=== PATIENT | female | born 1945 | race Caucasian/White ===

== ENCOUNTER → 2017-03-18 | Outpatient (CLI) | payer MEDICARE, OTHER | LOC: MW.CHORTHO 08:00 | PROVIDERS: ATTEND Physician Assistant | DX: M17.11 Unilateral primary osteoarthritis, right knee (principal) | CPT/HCPCS: 20610; G0463; J1040; J7326 ==

== ENCOUNTER 2019-05-13 20:20 | Emergency (ER) | payer MEDICARE, OTHER ==
[2019-05-13] MEDS ORDERED: Morphine 2 MG/ML Syringe IVPUSH ONE (20:23)
[2019-05-13] MEDS ORDERED: Ondansetron 4 MG/2 ML SDV IVPUSH ONE (20:23)
--- NOTE | 2019-05-13 20:38 | EDM.PDOC ---
ED HPI GENERAL MEDICAL PROBLEM - General Chief Complaint: Trauma Stated Complaint: FELL UP THE STAIRS, LIGHT HEADED Time Seen by Provider: 05/13/19 20:23 Source of Information: Reports: Patient History Limitations: Reports: No Limitations - History of Present Illness INITIAL COMMENTS - FREE TEXT/NARRATIVE: HISTORY AND PHYSICAL: Trauma alert was called upon patient arrival due to age and being on request. Dr Wilson was directly involved in patient care. History of present illness: Patient is a 73-year-old female who presents to the emergency room with complaints of right shoulder pain. She states she was walking up the stairs when her foot got caught while taking a step up and she had fallen onto her right side. She denies hitting her head or having any loss of consciousness. Right arm is guarded in parts her body and does appear like it may be dislocated. She denies any other systemic complaints at this time. Patient denies any fever, chills, headache, change in vision, syncope or near syncope. Denies any chest pain, back pain, shortness of breath or cough. Denies any abdominal pain, nausea, vomiting, diarrhea, constipation or dysuria. Has not noted any blood in urine or stool. Patient has been eating and drinking appropriately. Review of systems: As per history of present illness and below otherwise all systems reviewed and negative. Past medical history: As per history of present illness and as reviewed below otherwise noncontributory. Surgical history: As per history of present illness and as reviewed below otherwise noncontributory. Social history: See social history for further information Family history: As per history of present illness and as reviewed below otherwise noncontributory. Physical exam: General: Well-developed and well-nourished 73-year-old female. Alert and oriented. Nontoxic appearing and in no acute distress. HEENT: Atraumatic, normocephalic, pupils equal and reactive bilaterally, negative for conjunctival pallor or scleral icterus, mucous membranes moist, TMs normal bilaterally, throat clear, neck supple, nontender, trachea midline. No drooling or trismus noted. No meningeal signs. No hot potato voice noted. Lungs: Clear to auscultation, breath sounds equal bilaterally, chest nontender. Heart: S1S2, regular rate and rhythm without overt murmur Abdomen: Soft, nondistended, nontender. Negative for masses or hepatosplenomegaly. Negative for costovertebral tenderness. Pelvis: Stable nontender. Genitourinary/Rectal: Deferred. Skin: Intact, warm, dry. No lesions or rashes noted. Extremities: Limited range of motion of the right shoulder, has a guarded in towards her body. No tenderness of the right elbow, forearm, wrist or hand. Strong radial pulse with good capillary refill. Mild pain with palpation to the right anterior knee. Otherwise moves all other extremities per self without difficulty or deficits, negative for cords or calf pain. Neurovascular unremarkable. C-spine/Back: No pinpoint vertebral tenderness upon palpation. No crepitus, step -offs or obvious deformities. Patient was ambulatory into the emergency room and able to rock on her heels and toes without difficulty or deficits. Denies any numbness, tingling or saddle paresthesia. Denies any urinary or fecal incontinence. Neuro: Awake, alert, oriented. Cranial nerves II through XII unremarkable. Cerebellum unremarkable. Motor and sensory unremarkable throughout. Exam nonfocal. Notes: Dr Wilson evaluated this patient upon arrival. Patient has not had a previous shoulder dislocation. Agreeable to imaging. Head CT is negative. Initial right shoulder x-ray shows a dislocated shoulder. Negative chest x-ray. No acute findings on knee xray. Reduction technique was explained prior, consent obtained from patient and family member at bedside. Traction - counter traction was performed for closed shoulder reduction by Dr Wilson and myself. Patient tolerated well. Post reduction film was obtained. Normal postreduction film. Education on shoulder immobilizer and sling were given to patient and daughter at bedside. Medication and supportive care measures were reviewed and discussed. Patient lives in [place], encouraged to follow-up with orthopedics. Voices understanding and is agreeable to plan of care. Denies any further questions or concerns at this time. Diagnostics: Head CT, Shoulder, CXR Therapeutics: Morphine, Zofran Prescription: Tramadol (#15) Impression: Fall Right shoulder dislocation Right knee injury Plan: 1. Rest and ice the painful areas as able. Continue to use the shoulder immobilizer or sling as we discussed. Please follow-up with the orthopedic PA provider as we discussed. 2. Tylenol and/or ibuprofen for pain management. Tramadol for moderate to severe pain. This medication may cause drowsiness a do not take it will driving her needing to be functioning outside of the house. 3. Return to the ED as needed and as discussed. Definitive disposition and diagnosis as appropriate pending reevaluation and review of above. Onset: Today Duration: Minutes: Right Shoulder Pain Score (Numeric/FACES): 10 - Related Data Allergies Allergy/AdvReac Type Severity Reaction Status Date / Time No Known Allergies Allergy Verified 05/13/19 20:45 Home Meds: Home Meds Apixaban [Eliquis] 0 mg PO DAILY 05/13/19 [History] Losartan [Cozaar] 0 mg PO DAILY 05/13/19 [History] Naltrexone HCl/Bupropion HCl [Contrave ER 8-90 mg Tablet] 0 mg PO DAILY [History] Rosuvastatin [Crestor] 0 mg PO DAILY 05/13/19 [History] Verapamil HCl [Verapamil ER] 0 mg PO DAILY 05/13/19 [History] Review of Systems - Review of Systems Review Of Systems: ROS reveals no pertinent complaints other than HPI. ED EXAM, GENERAL - Physical Exam Exam: See Below (See dictation) Course - Vital Signs Last Recorded V/S: Last Vital Signs Temp 96.5 F 05/13/19 21:00 Pulse 61 05/13/19 21:00 Resp 19 05/13/19 21:00 BP 199/68 H 05/13/19 21:00 Pulse Ox 100 05/13/19 21:00 - Orders/Labs/Meds Orders: Active Orders 24 hr Category Date Time Status Shoulder 1V Rt [CR] Stat Exams 05/13/19 21:02 Taken DME for Discharge [COMM] Stat Oth 05/13/19 20:56 Ordered Meds: Medications Discontinued Medications Generic Name Dose Route Start Last Admin Trade Name Freq PRN Reason Stop Dose Admin Morphine Sulfate 2 mg 05/13/19 20:23 05/13/19 20:59 Morphine IVPUSH 05/13/19 20:24 2 mg ONETIME ONE Administration Ondansetron HCl 4 mg 05/13/19 20:23 05/13/19 20:50 Zofran IVPUSH 05/13/19 20:24 4 mg ONETIME ONE Administration Departure - Departure Time of Disposition: 21:47 Disposition: Home, Self-Care 01 Clinical Impression: Dislocation of right shoulder joint Qualifiers: Encounter type: initial encounter Qualified Code(s): S43.004A - Unspecified dislocation of right shoulder joint, initial encounter Fall Qualifiers: Encounter type: initial encounter Qualified Code(s): W19.XXXA - Unspecified fall, initial encounter Right knee injury Qualifiers: Encounter type: initial encounter Qualified Code(s): S89.91XA - Unspecified injury of right lower leg, initial encounter - Discharge Information Referrals: PCP,Not In Area [Primary Care Provider] - Forms: ED Department Discharge Additional Instructions: The following information is given to patients seen in the emergency department who are being discharged to home. This information is to outline your options for follow-up care. We provide all patients seen in our emergency department with a follow-up referral. The need for follow-up, as well as the timing and circumstances, are variable depending upon the specifics of your emergency department visit. If you don't have a primary care physician on staff, we will provide you with a referral. We always advise you to contact your personal physician following an emergency department visit to inform them of the circumstance of the visit and for follow-up with them and/or the need for any referrals to a consulting specialist. The emergency department will also refer you to a specialist when appropriate. This referral assures that you have the opportunity for follow-up care with a specialist. All of these measure are taken in an effort to provide you with optimal care, which includes your follow-up. Under all circumstances we always encourage you to contact your private physician who remains a resource for coordinating your care. When calling for follow-up care, please make the office aware that this follow-up is from your recent emergency room visit. If for any reason you are refused follow-up, please contact the [facility] at and asked to speak to the emergency department charge nurse. [facility] [address] [place] [id number] [address] 1. Rest and ice the painful areas as able. Continue to use the shoulder immobilizer or sling as we discussed. Please follow-up with the orthopedic PA provider as we discussed. 2. Tylenol and/or ibuprofen for pain management. Tramadol for moderate to severe pain. This medication may cause drowsiness a do not take it will driving her needing to be functioning outside of the house. 3. Return to the ED as needed and as discussed. - My Orders Last 24 Hours: My Active Orders 05/13/19 20:56 DME for Discharge [COMM] Stat 05/13/19 21:02 Shoulder 1V Rt [CR] Stat - Assessment/Plan Last 24 Hours: My Active Orders 05/13/19 20:56 DME for Discharge [COMM] Stat 05/13/19 21:02 Shoulder 1V Rt [CR] Stat
--- NOTE | 2019-05-13 20:46 | CT ---
INDICATION: Head pain after fall TECHNIQUE: Head CT without contrast. COMPARISON: November 21, 2007 FINDINGS: CSF spaces: Within normal limits for age. Brain parenchyma: There are nonspecific low attenuation white matter changes consistent with chronic microvascular disease. No sign of mass, hemorrhage, or midline shift. Skull base and calvarium: The visualized paranasal sinuses and mastoid air cells demonstrate no acute or significant findings. The visualized orbits are grossly unremarkable. No skull fractures. There is intracranial atherosclerosis. IMPRESSION: 1. No acute findings. 2. Nonspecific white matter disease, typical of chronic microvascular disease. Please note that all CT scans at this facility use dose modulation, iterative reconstruction, and/or weight-based dosing when appropriate to reduce radiation dose to as low as reasonably achievable. Dictated by Giselle Valderrama MD @ May 13 2019 8:44PM Signed by Dr. Giselle Valderrama @ May 13 2019 8:44PM
--- NOTE | 2019-05-13 20:55 | CR ---
INDICATION: fall COMPARISON: None. FINDINGS: Single AP view of the chest demonstrates adequate inflation of the lungs. No focal airspace consolidation, pneumothorax or effusion. Cardiomediastinal silhouette is unremarkable for an AP view. There is a right shoulder dislocation. IMPRESSION: 1. No acute cardiopulmonary findings. 2. Right shoulder dislocation. Dictated by Kojo Pinto MD @ 05/13/2019 8:54:37 PM Dictated by: Kojo Pinto MD @ 05/13/2019 20:54:42 (Electronically Signed)
--- NOTE | 2019-05-13 20:57 | CR ---
INDICATION: fall COMPARISON: None. FINDINGS: Two views of the right shoulder demonstrate dislocation of the humeral head with respect to the glenoid, likely anterior. No definite associated fracture, although there is contour abnormality of the superior humeral head. The AC joint remains intact. Soft tissues are unremarkable. IMPRESSION: Right shoulder dislocation, likely anterior. Dictated by Kooj Pinto MD @ 05/13/2019 8:56:29 PM Dictated by: Kojo Pinto MD @ 05/13/2019 20:56:39 (Electronically Signed)
--- NOTE | 2019-05-13 21:44 | CR ---
INDICATION: Knee pain following fall TECHNIQUE: Knee radiograph 3 views right COMPARISON: None FINDINGS: Bone: No acute fractures or aggressive bone lesions are identified. 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 No significant knee effusion is seen. Soft tissue: Unremarkable. No radiopaque foreign bodies are seen. Mild vascular calcifications noted. IMPRESSION: 1. No acute osseous injuries or abnormalities are noted. Dictated by Augustin Pappas MD @ 05/13/2019 9:41:45 PM Dictated by: Augustin Pappas MD @ 05/13/2019 21:43:44 (Electronically Signed)
== END 2019-05-13 22:10 | disposition home or self-care (01) ==
LOC: MW.ED 20:20
DX: S43.004A Unspecified dislocation of right shoulder joint, initial encounter (principal); S89.91XA Unspecified injury of right lower leg, initial encounter; Z79.899 Other long term (current) drug therapy; W10.9XXA Fall (on) (from) unspecified stairs and steps, initial encounter
CPT/HCPCS: 23650; 70450; 71045; 73020; 73030; 73562; 96374; 96375; 99284; J2270; J2405